=== PATIENT | female | born 1935 | race Caucasian/White ===

== ENCOUNTER 2017-05-24 11:43 | Emergency (ER) | payer OTHER, MEDICARE ==
[~2017-05-24] VITALS: Ht 170.2 cm; Wt 83.3 kg
[2017-05-24 11:47] VITALS: Ht 170.2 cm; Wt 83.3 kg
--- NOTE | 2017-05-24 12:14 | DIAGNOSTIC IMAGING REPORT ---
CT SCAN OF THE BRAIN WITHOUT IV CONTRAST CLINICAL HISTORY: Fall. Unresponsive. COMPARISON STUDY: No priors. TECHNIQUE: Unenhanced axial CT scan of the brain is performed from the vertex to the skull base. CT DOSE: 821.00 mGycm FINDINGS: Endotracheal and enteric tubes are noted on the baling machine tender tomogram. Brain parenchyma: There is multicompartmental intracranial hemorrhage. There is a large parenchymal hematoma centered in the right frontal lobe on axial image #28. This measures approximately 5 x 3 cm and there is significant surrounding edema. There is a large subdural hematoma identified along the right convexity. This measures up to 2.3 cm in maximum dimension and effaces the subjacent cortical sulci. Blood is also seen along the midline falx measuring up to 1 cm in thickness. Blood is also seen along the tentorium cerebelli, right greater than left. There is subarachnoid blood identified along the right-sided cortical sulci and the high left sided cortical sulci. Blood is present within the suprasellar cistern which is effaced, and there is hemorrhage layering within the left lateral ventricle. There is complete effacement of the right lateral ventricle with at least 2 cm of right to left midline shift. Ventricles, sulci, cisterns: See above. Intracranial vasculature: There is atherosclerotic calcification of the cavernous carotid arteries. Calvarium: The skeletal structures are osteopenic. No depressed calvarial fracture is seen. Soft tissues: There is a right posterior parietal scalp contusion. Sinuses and mastoids: There is trace fluid layering within the maxillary antra. The remaining paranasal sinuses are clear. The mastoid air cells are well pneumatized. Fluid is seen within the nasopharynx. Orbits: The bony orbits are grossly intact. There are bilateral ocular lens implants. IMPRESSION: 1. Extensive multicompartmental intracranial hemorrhage as above. 2. There is a large right subdural hemorrhage, with subdural blood also seen along the midline falx and both tentorium cerebelli. 3. There is a large parenchymal hematoma in the right frontal lobe with surrounding edema. 4. There are multiple foci of subarachnoid hemorrhage as well as intraventricular hemorrhage noted. 5. There is significant mass effect, with marked effacement of the right-sided cortical sulci, complete effacement of the right lateral ventricle, and at least 2 cm of right to left midline shift. There is no evidence of tonsillar herniation. 6. Right posterior parietal scalp contusion. No depressed calvarial fracture is seen. Findings were discussed with Dr. Harrison in the emergency department at the time of interpretation. Electronically signed by: Maninder Aponte M.D. 05/24/2017 12:13 PM Dictated Date/Time: 05/24/2017 12:04 PM
[2017-05-24] MEDS ORDERED: PROTHROMBIN COMP CONC- KCENTRA 2,000 UNIT in SYRINGE 0 ML IV SCH (12:15)
[2017-05-24] MEDS ORDERED: PHYTONADIONE INJ 10 MG in SODIUM CHLORIDE 0.9% 50ML 50 ML IV SCH (12:15)
[2017-05-24] MEDS ORDERED: LEVETIRACTAM 1000 MG in DEXTROSE 5% 100ML IV STA (12:20)
[2017-05-24] MEDS ORDERED: MAGN400T5 PO (12:25)
[2017-05-24] MEDS ORDERED: EZET10TA63 PO (12:25)
[2017-05-24] MEDS ORDERED: GLC/500 PO (12:25)
[2017-05-24] MEDS ORDERED: WARF2TAB8 PO (12:25)
[2017-05-24] MEDS ORDERED: ACET-1256 PO (12:25)
[2017-05-24] MEDS ORDERED: POTA20TA16 PO (12:25)
[2017-05-24] MEDS ORDERED: METO50TA16 PO (12:25)
[2017-05-24] MEDS ORDERED: LNX25 PO (12:25)
[2017-05-24] MEDS ORDERED: PREG1CAP36 PO (12:25)
[2017-05-24] MEDS ORDERED: CALC12502 PO (12:25)
[2017-05-24] MEDS ORDERED: HYDR25TA5 PO (12:25)
[2017-05-24] MEDS ORDERED: OMEG10007 PO (12:25)
[2017-05-24] MEDS ORDERED: SIMV80TA2 PO (12:25)
--- NOTE | 2017-05-24 12:25 | DIAGNOSTIC IMAGING REPORT ---
CHEST ONE VIEW PORTABLE HISTORY:81 yearsFemaleETT placement respiratory failure. COMPARISON: None available. TECHNIQUE: Supine AP view of the chest. FINDINGS: Endotracheal tube has been placed overlying the midline approximately 5 cm superior to the xochitl. There is atherosclerosis of the aorta. Cardiac silhouette is within normal limits. Left pectoral pacer is noted with leads intact. No pneumothorax, pleural effusion, focal airspace consolidation or overt pulmonary edema. The bones are grossly intact. IMPRESSION: Status post placement of an endotracheal tube which terminates well above the level of the xochitl. The above report was generated using voice recognition software. It may contain grammatical, syntax or spelling errors. Electronically signed by: Naeem Farrar M.D. 05/24/2017 12:24 PM Dictated Date/Time: 05/24/2017 12:22 PM
[2017-05-24 12:35] LABS: ISTAT CREATININE 2.3 mg/dl (0.6-1.3); ISTAT HEMOGLOBIN 15.6 g/dl (12.0-16.0); ISTAT IONIZED CALCIUM 1.09 mmol/l (1.12-1.32)
[2017-05-24 12:35] LABS: BASO % 0.1 %; BASO ABS # 0.02 K/uL (0-0.2); COMPLETE YES; HEMATOCRIT 44.1 % (37-47); IG% 0.4 %; LYMPH % 5.1 %; LYMPH ABS # 1.16 K/uL (1.2-3.4); MEAN CELL VOLUME 86.8 fL (80-100); MEAN CORPUSCULAR HEMOGLOBIN 29.7 pg (25-34); MEAN CORPUSCULAR HGB CONC 34.2 g/dl (32-36); MEAN PLATELET VOLUME 12.1 fL (7.4-10.4); MONO % 9.2 %; NEUT % 85.2 %; PLATELET COUNT 223 K/uL (130-400); RED BLOOD COUNT 5.08 M/uL (4.2-5.4)
[2017-05-24 12:46] LABS: INR 2.4 (0.9-1.1); PARTIAL THROMBOPLASTIN RATIO 1.4; PROTHROMBIN TIME (PATIENT) 27.2 SECONDS (9.0-12.0)
[2017-05-24 12:49] LABS: ARTERIAL BLD GAS O2 SATURATION 99.7 % (90-95); ARTERIAL BLOOD GAS HCO3 18 mmol/L (19-24); ARTERIAL BLOOD GAS PO2 262 mm/Hg (80-95); ARTERIAL BLOOD GAS pH 7.32 (7.35-7.45)
[2017-05-24] MEDS ORDERED: MAGN400T6 PO (12:49)
[2017-05-24] MEDS ORDERED: CYCL0.052 OPB (12:49)
[2017-05-24] MEDS ORDERED: ASPI81TA28 PO (12:49)
[2017-05-24 12:56] LABS: BUN/CREATININE RATIO 12.3 (10-20); CALCIUM 9.6 mg/dl (8.5-10.1); CREATININE 2.5 mg/dl (0.60-1.20); POTASSIUM 3.5 mmol/L (3.5-5.1)
[2017-05-24 13:00] VITALS: BP 123/54; PULSE 70; O2SAT 99
[2017-05-24 13:24] LABS: ALLEN TEST POS (POS); O2 ADMINISTRATION 60%
--- NOTE | 2017-05-24 18:23 | EMERGENCY ROOM VISIT NOTE ---
History Report prepared by Deonna: Lola Cordero Under the Supervision of: Dr. Win Harrison M.D. First contact with patient: 11:48 Chief Complaint: STROKE SYMPTOMS Stated Complaint: UNRESPONSIVE History of Present Illness The patient is a 81 year old female who presents to the Emergency Room unresponsive. Per the patient's family, the patient had a fall 2 days ago. She did hit her head. The patient was seen by her doctor and sent for an "x-ray." The patient had a headache yesterday. She did vomit yesterday. Her last known normal was yesterday at 6:30pm. The patient was found unresponsive slouched over on the commode in the bathroom this morning. She was unresponsive and had a pulse. The patient is on Coumadin for atrial fibrillation. She has had no recent fevers. This HPI is limited due to the patient's current unresponsive state. Source of History: family History Limited By: other (unresponsive) Onset: this morning Associated Symptoms: No fevers Review of Systems This HPI and ROS is limited. Past Medical & Surgical Medical Problems: (1) Atrial fibrillation (2) Diabetes Family History Patient reports no known family medical history. Social History Smoking Status: Former Smoker Smokeless Tobacco Use: No Alcohol Use: none Housing Status: lives with family Occupation Status: retired Current/Historical Medications Scheduled Acetaminophen (Tylenol), 1,000 MG PO BID Aspirin (Aspirin Ec), 81 MG PO DAILY Calcium Carbonate (Os-Bernardino 500), 1,250 MG PO DAILY Cyclosporine (Ophth) (Restasis), 1 DROP OPB BID Digoxin (Digoxin), 0.25 MG PO DAILY Ezetimibe (Zetia), 10 MG PO HS Fish Oil ([place]-3), 1 CAP PO DAILY Hydrochlorothiazide (Hydrochlorothiazide), 25 MG PO QAM Magnesium Oxide (Mag-Ox), 800 MG PO QAM Magnesium Oxide (Mag-Ox), 400 MG PO QPM Metformin Hcl (Glucophage), 500 MG PO BID Metoprolol Tartrate (Lopressor) (Lopressor), 50 MG PO BID Potassium Ext Rel (Klor-Con), 20 MEQ PO BID Simvastatin (Zocor), 40 MG PO HS Warfarin Sod (Jantoven), 2 MG PO DAILY Scheduled PRN Pregabalin (Lyrica), 25 MG PO TID PRN for pain / neuropathy Physical Exam Vital Signs Date Time Temp Pulse Resp B/P (MAP) Pulse Ox O2 Delivery O2 Flow Rate FiO2 05/24/17 13:00 70 14 123/54 99 05/24/17 12:37 70 14 123/56 99 Mechanical Ventilator 60 05/24/17 12:20 70 05/24/17 12:18 70 14 112/56 98 Mechanical Ventilator 60 05/24/17 12:10 60 05/24/17 12:03 70 14 107/51 99 Mechanical Ventilator 60 05/24/17 12:02 100 05/24/17 11:47 66 12 Ambu-Bag Physical Exam Physical examination is limited due to the patient's condition. Constitutional: Vital signs reviewed. Patient is intubated and unresponsive. Eyes: Right pupil 6mm, left pupil 4mm, non reactive. ENT: Intubated. Respiratory: Clear to auscultation bilaterally. Breath sounds are equal with Ambu bag. Cardiovascular: Regular rate and rhythm. No rubs or gallops. GI: Soft, nondistended. Bowel sounds are present. Musculoskeletal: No peripheral edema. Integumentary: No cyanosis. Neurological: Patient is unresponsive. Psychiatric: Unable to assess. Medical Decision & Procedures ER Provider Diagnostic Interpretation: Radiology results as stated below per my review and the radiologist's interpretation: CT SCAN OF THE BRAIN WITHOUT IV CONTRAST CLINICAL HISTORY: Fall. Unresponsive. COMPARISON STUDY: No priors. TECHNIQUE: Unenhanced axial CT scan of the brain is performed from the vertex to the skull base. CT DOSE: 821.00 mGycm FINDINGS: Endotracheal and enteric tubes are noted on the astronaut mission specialist tomogram. Brain parenchyma: There is multicompartmental intracranial hemorrhage. There is a large parenchymal hematoma centered in the right frontal lobe on axial image #28. This measures approximately 5 x 3 cm and there is significant surrounding edema. There is a large subdural hematoma identified along the right convexity. This measures up to 2.3 cm in maximum dimension and effaces the subjacent cortical sulci. Blood is also seen along the midline falx measuring up to 1 cm in thickness. Blood is also seen along the tentorium cerebelli, right greater than left. There is subarachnoid blood identified along the right-sided cortical sulci and the high left sided cortical sulci. Blood is present within the suprasellar cistern which is effaced, and there is hemorrhage layering within the left lateral ventricle. There is complete effacement of the right lateral ventricle with at least 2 cm of right to left midline shift. Ventricles, sulci, cisterns: See above. Intracranial vasculature: There is atherosclerotic calcification of the cavernous carotid arteries. Calvarium: The skeletal structures are osteopenic. No depressed calvarial fracture is seen. Soft tissues: There is a right posterior parietal scalp contusion. Sinuses and mastoids: There is trace fluid layering within the maxillary antra. The remaining paranasal sinuses are clear. The mastoid air cells are well pneumatized. Fluid is seen within the nasopharynx. Orbits: The bony orbits are grossly intact. There are bilateral ocular lens implants. IMPRESSION: 1. Extensive multicompartmental intracranial hemorrhage as above. 2. There is a large right subdural hemorrhage, with subdural blood also seen along the midline falx and both tentorium cerebelli. 3. There is a large parenchymal hematoma in the right frontal lobe with surrounding edema. 4. There are multiple foci of subarachnoid hemorrhage as well as intraventricular hemorrhage noted. 5. There is significant mass effect, with marked effacement of the right-sided cortical sulci, complete effacement of the right lateral ventricle, and at least 2 cm of right to left midline shift. There is no evidence of tonsillar herniation. 6. Right posterior parietal scalp contusion. No depressed calvarial fracture is seen. Findings were discussed with Dr. Harrison in the emergency department at the time of interpretation. Electronically signed by: Maninder Aponte M.D. 05/24/2017 12:13 PM Dictated Date/Time: 05/24/2017 12:04 PM CHEST ONE VIEW PORTABLE HISTORY:81 yearsFemaleETT placement respiratory failure. COMPARISON: None available. TECHNIQUE: Supine AP view of the chest. FINDINGS: Endotracheal tube has been placed overlying the midline approximately 5 cm superior to the xochitl. There is atherosclerosis of the aorta. Cardiac silhouette is within normal limits. Left pectoral pacer is noted with leads intact. No pneumothorax, pleural effusion, focal airspace consolidation or overt pulmonary edema. The bones are grossly intact. IMPRESSION: Status post placement of an endotracheal tube which terminates well above the level of the xochitl. The above report was generated using voice recognition software. It may contain grammatical, syntax or spelling errors. Electronically signed by: Naeem Farrar M.D. 05/24/2017 12:24 PM Dictated Date/Time: 05/24/2017 12:22 PM Laboratory Results 05/24/17 12:05 Red Blood Count 5.08, Mean Corpuscular Volume 86.8, Mean Corpuscular Hemoglobin 29.7, Mean Corpuscular Hemoglobin Concent 34.2, Mean Platelet Volume 12.1, Neutrophils (%) (Auto) 85.2, Lymphocytes (%) (Auto) 5.1, Monocytes (%) (Auto) 9.2, Eosinophils (%) (Auto) 0.0, Basophils (%) (Auto) 0.1, Neutrophils # (Auto) 19.24, Lymphocytes # (Auto) 1.16, Monocytes # (Auto) 2.09, Eosinophils # (Auto) 0.00, Basophils # (Auto) 0.02 05/24/17 12:05 Test 05/24/17 12:05 05/24/17 12:14 05/24/17 12:20 05/24/17 12:26 White Blood Count 22.60 K/uL (4.8-10.8) Red Blood Count 5.08 M/uL (4.2-5.4) Hemoglobin 15.1 g/dL (12.0-16.0) Hematocrit 44.1 % (37-47) Mean Corpuscular Volume 86.8 fL (80-100) Mean Corpuscular Hemoglobin 29.7 pg (25-34) Mean Corpuscular Hemoglobin Concent 34.2 g/dl (32-36) Platelet Count 223 K/uL (130-400) Mean Platelet Volume 12.1 fL (7.4-10.4) Neutrophils (%) (Auto) 85.2 % Lymphocytes (%) (Auto) 5.1 % Monocytes (%) (Auto) 9.2 % Eosinophils (%) (Auto) 0.0 % Basophils (%) (Auto) 0.1 % Neutrophils # (Auto) 19.24 K/uL (1.4-6.5) Lymphocytes # (Auto) 1.16 K/uL (1.2-3.4) Monocytes # (Auto) 2.09 K/uL (0.11-0.59) Eosinophils # (Auto) 0.00 K/uL (0-0.5) Basophils # (Auto) 0.02 K/uL (0-0.2) RDW Standard Deviation 47.1 fL (36.4-46.3) RDW Coefficient of Variation 14.8 % (11.5-14.5) Immature Granulocyte % (Auto) 0.4 % Immature Granulocyte # (Auto) 0.09 K/uL (0.00-0.02) Prothrombin Time 27.2 SECONDS (9.0-12.0) Bedside Prothrombin Time INR 2.7 (0.9-1.1) Prothromb Time International Ratio 2.4 (0.9-1.1) Activated Partial Thromboplast Time 37.1 SECONDS (21.0-31.0) Partial Thromboplastin Ratio 1.4 Est Creatinine Clear Calc Drug Dose 19.3 ml/min Estimated GFR () 20.1 Estimated GFR (Non- 17.3 BUN/Creatinine Ratio 12.3 (10-20) Calcium Level 9.6 mg/dl (8.5-10.1) Bedside Hemoglobin 15.6 g/dl (12.0-16.0) Bedside Hematocrit 46 % (37-47) Bedside Sodium 138 mEq/L (135-144) Bedside Potassium 3.7 mEq/L (3.3-5.0) Bedside Chloride 98 mEq/L (101-112) Bedside Total CO2 21 mEq/l (24-31) Anion Gap 24.0 mmol/L (16-25) Bedside Blood Urea Nitrogen 36 mg/dl (7-18) Bedside Creatinine 2.3 mg/dl (0.6-1.3) Bedside Glucose (other) 288 mg/dl (70-99) Bedside Ionized Calcium (Gabriela) 1.09 mmol/l (1.12-1.32) Bedside Troponin I 0.080 ng/ml (0-0.045) Arterial Blood pH 7.32 (7.35-7.45) Arterial Blood Partial Pressure CO2 36 mmHg (35-46) Arterial Blood Partial Pressure O2 262 mm/Hg (80-95) Arterial Blood HCO3 18 mmol/L (19-24) Arterial Blood Oxygen Saturation 99.7 % (90-95) Arterial Blood Base Excess -7.0 mEq/L (-9-1.8) Arterial Blood Gas Delivery 60% Julio C Test POS (POS) Laboratory results as reviewed by me. Medications Administered Medications (Trade) Dose Ordered Sig/Hannah Route Start Time Stop Time Status Last Admin Dose Admin Prothrombin Complex Concent (Human) 2000 unit/ Syringe 80 ml @ 10 mls/min TODAY@1215 IV 05/24/17 12:15 05/24/17 13:46 DC 05/24/17 12:16 10 MLS/MIN Phytonadione 10 mg/Sodium Chloride 51 ml @ 102 mls/hr TODAY@1215 IV 05/24/17 12:15 05/24/17 12:44 DC 05/24/17 12:15 102 MLS/HR Levetiracetam 1000 mg/Dextrose 110 ml @ 440 mls/hr NOW STAT IV 05/24/17 12:20 05/24/17 12:43 DC 05/24/17 12:20 440 MLS/HR ECG Indication: other (unresponsive) Rate (beats per minute): 70 Rhythm: other (paced) Findings: no acute ischemic change, no ectopy ED Course 1155: The patient was evaluated in room B1. A complete history and physical exam was performed. 1210: I spoke to Dr. Shyanne Lopez about the patient. He has accepted the patient for transfer. He said to send the patient to the ED. He recommends giving 1 gm of Kepra. No Mannitol or Decadron or any other medications should be given at this time. 1215: Phytonadione 10 mg/ Sodium Chloride 51 ml @ 102 mls/hr Protocol IV, Prothrombin Complex Concent (Human) 2,000 unit/ Syringe 80 ml @ 10 mls/min Protocol IV. 1217: I discussed recommendations from Dr. Shyanne Lopez to the patient's daughter. 1220: Levetiracetam 1,000 mg/ Dextrose 110 ml @ 440 mls/hr IV. 1226: I reassessed the patient. She has a blood pressure of 110/56. Her pupils are still nonreactive. Kcentra has been given. She is on a warming blanket. 1245: The patient's blood pressure is improving. [facility] will be there in 10 minutes. 1300: The patient is being transferred to [place] at this time. Medical Decision This is an 81-year-old female presents unresponsive. Differential diagnosis includes intracranial hemorrhage, seizure, CVA, metabolic derangement, skull fracture. I did perform a limited focused review of portions of the patient's old chart on the electronic medical record. The patient has had no prior visits to this hospital. Medication Reconciliation: I attest that I have personally reviewed the patient' s current medication list. Blood Pressure Screening: Patient was found to have normal blood pressure on screening and does not require follow-up. I did provide prehospital medical command from patient. According to the paramedics we were the closest facility to their location. The paramedics suspected intracranial hemorrhage as she had a fall 2 days prior and was complaining of a headache. The loading unit operator crimping did perform rapid sequence intubation for airway protection. They did have a prolonged transport time to our facility of 30 minutes and I did order IV Versed for sedation after intubation. I did evaluate the patient on arrival as noted above. She has unequal pupils and was immediately sent to CT scan. I did order a stat CT of the head. I did review the images myself as well as the radiology report as described above. She has a large multicompartment intracranial hemorrhage with significant mass effect. The patient was placed on a continuous satellite project site monitor. I did order and personally review the patient's 12-lead EKG and chest x-ray as described above. I did order and review the patient's blood work as noted in the electronic medical record. She has leukocytosis, an INR of 2.7, kidney injury and a slightly elevated troponin. I did talk to the patient's daughter about the test results. She requested transfer to [facility]. I did speak to the neurosurgeon at [facility] who accepted the patient for transfer and requested he be sent to the ED. He did not recommend any mannitol or steroids. He recommended IV Keppra. The patient was given IV Keppra as well as IV K Centra and vitamin K. The patient was transferred via helicopter to [facility]. Consults Time Called: 1207 Consulting Physician: Dr. Shyanne Crawford Neurosurgery Returned Call: [address] Shyanne Crawford Neurosurgery about the patient. He has accepted the patient for transfer. He said to send the patient to the ED. He recommends giving 1 gm of Kepra. No Mannitol or Decadron or any other medications should be given at this time. Impression Primary Impression: Intracranial hemorrhage Additional Impressions: Hypothermia Anticoagulated on Coumadin Elevated serum creatinine Elevated troponin Critical Care I have personally spent 45 minutes of critical care time in the direct management of this patient. This includes bedside care, interpretation of diagnostic studies, and testing, discussion with consultants, patient, and family members, and other required patient management activities. This 45 minutes is in excess of all separately billable procedures. Scribe Attestation The scribe's documentation has been prepared under my direct and personally reviewed by me in its entirety. I confirm that the note above accurately reflects all work, treatment, procedures, and medical decision making performed by me. Departure Information Dispostion Transfer Acute Care Facility Referrals Rodrick Heck D.O. (PCP) Problem Qualifiers Additional Impressions: Hypothermia Encounter type: initial encounter Qualified Codes: T68.XXXA - Hypothermia, initial encounter
== END 2017-05-24 13:00 | disposition short-term general hospital (02) ==
LOC: EDBD 11:43 → C.EDB 11:44
DX: S06.340A Traumatic hemorrhage of right cerebrum without loss of consciousness, initial encounter (principal); S00.03XA Contusion of scalp, initial encounter; R40.20 Unspecified coma; W19.XXXA Unspecified fall, initial encounter; I70.0 Atherosclerosis of aorta; I48.91 Unspecified atrial fibrillation; Z79.01 Long term (current) use of anticoagulants; E11.9 Type 2 diabetes mellitus without complications; Z79.899 Other long term (current) drug therapy; Z87.891 Personal history of nicotine dependence